=== PATIENT | female | born 1970 | race Caucasian/White ===

== ENCOUNTER 2022-02-02 13:35 | Emergency (ER) | payer SELFPAY ==
[2022-02-02] MEDS ORDERED: Ketorolac Tromethamine 30 MG/ML VIAL ONE (17:10)
== END 2022-02-02 17:39 | disposition home or self-care (01) ==
LOC: ERS 13:35
DX: M25.561 Pain in right knee (principal); M25.562 Pain in left knee; M25.532 Pain in left wrist; I10 Essential (primary) hypertension; Z79.899 Other long term (current) drug therapy
CPT/HCPCS: 96372; 99283; J1885

== ENCOUNTER 2022-02-03 09:58 | Emergency (ER) | payer SELFPAY | END 2022-02-03 11:54 | disposition home or self-care (01) | LOC: ERS 09:58 | DX: S43.402A Unspecified sprain of left shoulder joint, initial encounter (principal); W18.31XA Fall on same level due to stepping on an object, initial encounter; I10 Essential (primary) hypertension; Z85.41 Personal history of malignant neoplasm of cervix uteri; Z79.899 Other long term (current) drug therapy; Z79.82 Long term (current) use of aspirin ==